=== PATIENT | female | born 1995 | race Two or more races ===

== ENCOUNTER 2018-06-09 09:54 | Outpatient (CLI) | payer OTHER ==
[~2018-06-09] VITALS: Ht 157.5 cm; Wt 85.9 kg
[2018-06-09 10:25] VITALS: Ht 157.5 cm; Wt 85.9 kg
[2018-06-09 10:26] VITALS: BP 132/59; PULSE 91; RESP 18
[2018-06-09] MEDS ORDERED: PNV11TAB PO (10:29)
--- NOTE | 2018-06-09 14:02 | TRIAGE ---
OB Triage Datetime Report Generated by CPN: 06/09/2018 14:02 Datetime: 06/09/2018 11:46 Stage of : OB Triage Datetime: 06/09/2018 11:18 Labor Evaluation Frequency: 0 Monitor Mode: External Pattern: Normal: <= 5 Contractions in 10 Minutes Resting Tone [place]: Relaxed Heart Rate FHR Baseline Rate: 125 Monitor Mode: External US Variability: Moderate 6-25 bpm Accelerations: 10X10 Decelerations: None Category: Category I Pain Assessment Pain Scale: 7 Pain Presence: Constant Pain Type: Ache Pain Location: Right Groin Pain Goal: 3 Pain Relief Measures: Comfort Measures Datetime: 06/09/2018 11:04 Stage of : OB Triage Datetime: 06/09/2018 10:43 Stage of : OB Triage Datetime: 06/09/2018 10:39 Stage of : OB Triage Datetime: 06/09/2018 10:07 Stage of : OB Triage Assessment Type: Triage Maternal Assessment Level of Consciousness: Fully Conscious DTR's/Clonus: DTRs 2+; No Clonus Headache: Denies Blurred Vision: No Respiratory Effort: Unlabored; Regular Rhythm; Equal Expansion Breath Sounds, Left: Clear and Equal Breath Sounds, Right: Clear and Equal Nausea/Vomiting: Denies RUQ Epigastric Pain: Denies Facial Edema: None Temperature Route: Axillary Fall Risk Assessment History of Falling: (0) No Secondary Diagnosis: (0) No Ambulatory Aid: (0) Bedrest/Nurse Assist IV Therapy: (0) No Gait: (0) Normal/Bedrest/Immobile Mental Status: (0) Oriented to Own Ability Fall Score: 0 Fall Risk Score Definition: No Risk: No action required Labor Evaluation Frequency: 0 Monitor Mode: External Pattern: Normal: <= 5 Contractions in 10 Minutes Resting Tone [place]: Relaxed Heart Rate FHR Baseline Rate: 135 Monitor Mode: External US Variability: Moderate 6-25 bpm Accelerations: 10X10 Decelerations: None Category: Category I Pain Assessment Pain Scale: 8 Pain Presence: Intermittent Pain Type: Cramping Pain Location: Right Groin Pain Goal: 3 Pain Relief Measures: Comfort Measures Datetime: 06/09/2018 10:02 Time of Arrival: 06/09/2018 09:50 EGA: 27.3 Arrived By: Ambulatory Arrived From: Home Chief Complaint: RT SIDE LOWER ABDOMEN PAIN SINCE YESTERDAY, NO LEAKING, BLEEDING, OR UC'S Movement: Present Contractions: Denies/Absent Rupture of Membranes: Denies Vaginal Bleeding: None Vaginal Discharge: Denies Recent Sexual Intercouse: Denies Abdominal Trauma: Not Applicable Patient Complaints: Other Time Provider Notified: 06/09/2018 10:40 Provider Notified: VAN Initial Plan: MONITOR ,u/a c_s, maryellen
--- NOTE | 2018-06-09 15:18 | PN ---
Triage Information Date/Time Reason for visit: Right side abdominal pain Weeks of Gestation 27 weeks and 3 days /Para G1 Diabetes: none Hypertention: none Objective Vital Signs Date Temp Pulse Resp B/P (MAP) Pulse Ox O2 O2 Flow FiO2 Time Delivery Rate 06/09/18 98.1 91 18 132/59 10:26 (83) Heart Rate: 140's Contractions: None Results/Medications Results 24 hrs Laboratory Tests Test 06/09/18 10:15 Urine Color YELLOW Urine Clarity CLOUDY A Urine pH 6.0 Urine Specific [place] 1.018 Urine Ketones NEGATIVE Urine Nitrite NEGATIVE Urine Bilirubin NEGATIVE Urine Urobilinogen NEGATIVE Urine Leukocyte Esterase NEGATIVE Urine Microscopic RBC 2 Urine Microscopic WBC 4 Urine Squamous Epithelial Cells MODERATE Urine Mucus FEW A Urine Hemoglobin NEGATIVE Urine Glucose NEGATIVE Urine Total Protein NEGATIVE Disposition: Discharge Assessment/Plan 22 years old 1 with single intrauterine at 27 weeks and 3 days with MICHELLE of 09/05/2018 complaining of right-sided abdominal pain. She states good movement. She denies nausea, vomiting, shortness of breath, chest pain, headache, visual changes, vaginal bleeding or LOF. Her exam is unremarkable except for mild right lower quadrant tenderness, there is no rebound or guarding. heart rate is category 1. She has no uterine contractions. Sign and symptom of labor, preeclampsia, kick count discussed in detail with patient. She expressed understanding. All of her questions answered. She referred to emergency department for further management. Patient and her has agreed to be seen at the emergency department. ITA LOERA Jun 09, 2018 15:18
== END 2018-06-09 12:20 | disposition home or self-care (01) ==
LOC: OBT 09:54 → L-D 09:54 → OBT 12:20
PROVIDERS: ATTEND Obstetrics & Gynecology
DX: O26.892 Other specified pregnancy related conditions, second trimester (principal); Z3A.27 27 weeks gestation of pregnancy; R10.30 Lower abdominal pain, unspecified
CPT/HCPCS: 76815; 81001; 87086; Z7500; G0463

== ENCOUNTER 2018-09-03 07:54 | Inpatient (IN) | payer MEDICAID, OTHER ==
[~2018-09-03] VITALS: Ht 157.5 cm; Wt 90.8 kg
[2018-09-03 08:18] VITALS: Ht 157.5 cm; Wt 90.8 kg
[2018-09-03 08:19] VITALS: BP 128/78; PULSE 112; RESP 18
[2018-09-03] MEDS ORDERED: PNV11TAB PO (08:20)
[2018-09-03] MEDS ORDERED: OXYTOCIN 30 UNITS/LR 500 ML IV SCH ×3 (08:30→16:00)
[2018-09-03] MEDS ORDERED: CARBOPROST 250 MCG INJ IM PRN ×2 (08:30→23:30)
[2018-09-03] MEDS ORDERED: BUTORPHANOL 2 MG INJ IV PRN ×2 (08:30)
[2018-09-03] MEDS ORDERED: METHYLERGONOVINE 0.2 MG INJ IM PRN ×2 (08:30→23:30)
[2018-09-03] MEDS ORDERED: LIDOCAINE 1% (MPF) 30 ML INJ INJ PRN (08:30)
[2018-09-03] MEDS ORDERED: OXYTOCIN 30 UNITS/LR 500 ML IV PRN ×2 (08:30→23:30)
[2018-09-03] MEDS ORDERED: MISOPROSTOL 200 MCG TAB PR PRN ×2 (08:30→23:30)
[2018-09-03] MEDS: LACTATED RINGER'S 1,000 ML IV SCH ×2 (09:18→15:11)
--- NOTE | 2018-09-03 14:57 | PREAC ---
Date/Time of Note Date/Time of Note DATE: 09/03/18 TIME: 14:56 Anesthesia Eval and Record Evaluation Time Pre-Procedure Interview DATE: 09/03/18 TIME: 14:56 Age 23 Sex female NPO: 8 hrs Preoperative diagnosis Labor pain Planned procedure epidural Past Medical History Past Medical History: None Surgery & Anesthesia Issues No known issue Meds Anticoagulation: No Beta Milla within 24 hr: No Reason Beta Milla not given: Pt. not on B-Milla Reported Medications [id number] ( 19) 1 Each Tablet, 1 TAB PO DAILY, TAB 09/03/18 Current Medications Lactated Ringer's 1,000 ml @ 125 mls/hr Q8H IV Last administered on 09/03/18at 09:18; Admin Dose 125 MLS/HR; Start 09/03/18 at 08:21 Butorphanol Tartrate (Stadol) 1 mg Q2H PRN IV .PAIN SCALE 1-5; Start 09/03/18 at 08:30 Butorphanol Tartrate (Stadol) 2 mg Q2H PRN IV .PAIN SCALE 6-10; Start 09/03/18 at 08:30 Lidocaine (Xylocaine 1% (Mpf)) 30 ml ONCE PRN INJ .EPISIOTOMY; Start 09/03/18 at 08:30 Oxytocin/Lactated Ringer's 500 ml @ 500 mls/hr ONCE POST IV ; Start 09/03/18 at 08:30 Oxytocin/Lactated Ringer's 500 ml @ 125 mls/hr POST IV ; Start 09/03/18 at 08:30 Oxytocin/Lactated Ringer's 500 ml @ 0 mls/hr ONCE PRN IV .VAGINAL BLEEDING; S tart 09/03/18 at 08:30 Methylergonovine Maleate (Methergine) 0.2 mg ONCE PRN IM .VAGINAL BLEEDING; S tart 09/03/18 at 08:30 Carboprost Tromethamine (Hemabate) 250 mcg ONCE PRN IM .VAGINAL BLEEDING; Start 09/03/18 at 08:30 Misoprostol (Cytotec) 1,000 mcg ONCE PRN MT .VAGINAL BLEEDING; Start 09/03/18 at 08:30 Meds reviewed: Yes Allergies Coded Allergies: No Known Allergy (Unverified , 06/09/18) Allergies Reviewed: Yes Labs/Studies Labs Reviewed: Reviewed by anesthesiologist Result Diagram: 09/03/18 0925 Laboratory Tests 09/03/18 09:25 Blood Bank Test 09/03/18 09:25 Antibody Screen NEGATIVE Blood Type O POSITIVE Rh Immune Globulin Candidate NO test: Positive Studies: ECG, CXR Pre-procedure Exam Last vitals Vital Signs Date Temp Pulse Resp B/P (MAP) Pulse Ox O2 O2 Flow FiO2 Time Delivery Rate 09/03/18 98.0 112 18 128/78 08:19 (95) Airway: Adequate mouth opening Mallampati: Mallampati I Teeth: Normal Lung: Normal Heart: Normal ASA Physical Status ASA physical status: 2 Emergency: None Planned Pain Management Epidural Pre-operative Attestations Prior to commencing anesthesia and surgery, the patient was re-evaluated, there was verification of: *The patient's identity *The results of appropriate recent lab work and preoperative vital signs *The above evaluation not changing prior to induction *Anesthetic plan, risk benefits, alternative and complications discussed with patient/family; questions answered; patient/family understands, accepts and wishes to proceed. JENNIE STODDARD MD September 03, 2018 14:57
[2018-09-03] MEDS ORDERED: FENTAnyl 2MCG/ML-ROPIV 0.2% 100 ML ONE (15:09)
[2018-09-03] MEDS ORDERED: DIPHENHYDRAMINE 50 MG INJ IV PRN (17:30)
[2018-09-03] MEDS ORDERED: FENTAnyl 2MCG/ML-ROPIV 0.2% 100 ML BAG EPI SCH (17:30)
[2018-09-03] MEDS ORDERED: ONDANSETRON 4 MG INJ IV PRN (17:30)
[2018-09-03] MEDS ORDERED: NALOXONE (0.4 MG/ML) INJ IV PRN (17:30)
[2018-09-03] MEDS ORDERED: MINERAL OIL LIGHT 10 ML VIAL TOP ONE ×2 (20:00→23:30)
--- NOTE | 2018-09-03 21:07 | HP ---
Date/Time of Note Date/Time of Note DATE: 09/03/18 TIME: 21:03 OB - History Hx of Present Free Text/Dictation 23-year-old female 1 para 0 at 39 weeks and 5 days gestation admitted complaining of onset of labor contractions 2300 p.m. on September 02, 2018 Last Menstrual Period: Nov 29, 2017 Estimated Due Date: September 05, 2018 : 1 Para: 0 Care: Good Care Ultrasounds: Normal mid trimester US Obstetrical Complications: None Medical Complications: None Past Family/Social History * Past Medical, Surgical, Family and Obstetric Histories reviewed from chart. Blood Type: O+ Rubella: not immune RPR/VDRL: Negative GBS Status: Negative HBsAG: Negative OB Admission Exam Vital Signs Vital Signs Vital Signs Date Temp Pulse Resp B/P (MAP) Pulse Ox O2 O2 Flow FiO2 Time Delivery Rate 09/03/18 98.0 112 18 128/78 08:19 (95) Physical Exam HEENT: WNL Heart: Rhythm Normal Lungs: Clear, Equal Abdomen: WNL Extremities: Normal Reflexes: Normal Cervical Dilatation: 3cm Effacement: 75% Station: -3 Membranes: Intact Heart Rate: 140's Accelerations: Accelerations Present Decelerations: No Decelerations Varibility: Marked Contractions on Admission: 6-10 Minutes Apart Date/Time Contractions Began: September 02, 2018 at 2300 p.m. Frequency of Contractions: Every 8 minutes Duration: Over 60 seconds Intensity: Mild Last 72 hours Lab Results CBC & BMP 09/03/18 09:25 OB Assessment/Plan Other Assessment: Term gestation Labor contractions Other plan: Proceed with labor KYM WRIGHT MD September 03, 2018 21:07
--- NOTE | 2018-09-03 21:09 | LDN ---
Date/Time of Note Date/Time of Note DATE: 09/03/18 TIME: 21:07 Delivery Summary Normal spontaneous vaginal delivery of a viable over midline episiotomy Weeks of Gestation 39 weeks and 5 days Placenta Delivered: Spontaneously Meconium: none Episiotomy: Yes Indication for episiotomy Prolonged bradycardic episodes and variable decelerations of heart tones Laceration repair: Midline episiotomy was repaired in layers using 2-0 Vicryl in deeper layers and 2 chromic and superficial Anesthesia type: Epidural Estimated blood loss: 200 Sponge & Needle done & correct: Yes All needle counts correct: Yes Any foreign bodies felt in the: No Infant Delivery Information Sex Sex: male Apgars 1 Minute: 9 5 Minute: 9 Suctioning Nose & mouth suctioned at pj: Yes Delee suction performed: No Umbilical Cord Umbilical cord with: 3 Vessels Cord presentations: no nuchal cord Cord Blood was obtained: Yes Mother & Baby Disposition Disposition Mom & Baby to Maternity; Good: Yes (Mother and baby were recovered in good condition) Mom transferred to: Other Baby to NICU: No KYM WRIGHT MD September 03, 2018 21:08
[2018-09-03] MEDS ORDERED: ACETAMINOPHEN 500 MG TAB PO ONE (21:14)
[2018-09-03] MEDS ORDERED: KETOROLAC 30 MG INJ IV ONE (21:14)
[2018-09-03 21:55] VITALS: BP 125/72; PULSE 85; RESP 18
[2018-09-03] MEDS ORDERED: WITCH HAZEL/GLYCERIN PAD PR PRN (23:30)
[2018-09-03] MEDS ORDERED: LANOLIN HPA 1 PKT TOP PRN (23:30)
[2018-09-03] MEDS ORDERED: DIBUCAINE 1% 30 GM OINT TOP PRN (23:30)
[2018-09-03] MEDS ORDERED: HYDROCODONE/APAP (5/325) TAB PO PRN ×2 (23:30)
[2018-09-03] MEDS ORDERED: BENZOCAINE 20% 56 ML SPRAY TOP PRN (23:30)
[2018-09-03] MEDS ORDERED: ZOLPIDEM 5 MG TAB PO PRN (23:30)
[2018-09-04] MEDS: IBUPROFEN 600 MG TAB PO SCH ×5 (00:25→23:47)
[2018-09-04] MEDS: CEPHALEXIN 500 MG CAP PO SCH ×5 (00:25→23:47)
[2018-09-04] MEDS: LACTATED RINGER'S 1,000 ML IV* SCH ×2 (01:49→06:58)
[2018-09-04 03:50] VITALS: BP 114/49; PULSE 86; RESP 17
[2018-09-04 08:30] VITALS: BP 118/69; PULSE 81; RESP 18
[2018-09-04] MEDS: MAGNESIUM HYDROXIDE 30ML CUP PO SCH ×2 (09:25→21:26)
[2018-09-04] MEDS: SENNA/DOCUSATE NA (8.6MG/50MG) TAB PO SCH ×2 (09:25→21:26)
--- NOTE | 2018-09-04 11:55 | DS ---
Date/Time of Note Date/Time of Note Home today or next day DATE: 09/04/18 TIME: 11:54 Obstetrical Discharge Record Final Diagnosis Final Diagnosis: Term delivered Other Final Diagnosis Status post vaginal delivery Vaginal Delivery Obstetrical Delivery: Spontaneous, Episiotomy, Repaired Complications Augmentation: Yes Condition on Discharge Physical Assessment Last Vitals: See nurse's notes Voiding: Yes Bowel Movement: Yes Breast: Soft, non-tender, Filling Fundus: Firm Abdomen and Incision: Abdomen is soft with present bowel sounds And this is firm below bellybutton Episiotomy: Episiotomy is healing well and appears clean Calf Tenderness: No Patient Condition: Good KYM WRIGHT MD September 04, 2018 11:55
[2018-09-04] MEDS ORDERED: IBUP-1542 PO (11:57)
--- NOTE | 2018-09-04 11:57 | PD.PPDC ---
[facility] Discharge Instruction Provider Information Physician Information 23-year-old female had vaginal delivery Diagnosis [id number] Final Diagnosis: Vbtoa3o Status post vaginal delivery Condition [id number] Patient Condition: [id number] Good Diet [id number] Diet: Pnwtw3r Resume Regular Diet Activity/Restrictions [id number] Activity: Plqlc8j Normal Activity May Shower [id number] Restrictions: Cclkq7a Nothing in the Vagina [id number] Return to Work or School: [id number] Oct 18, 2018 Follow-up Follow-up with Physician: 2, 4, Week/Weeks Return to clinic for [id number] OB Instructions: Yvxqs1a Breast Tenderness (In clinic) Depression Comment: Pelvic rest for 6 weeks KYM WRIGHT MD September 04, 2018 11:57
[2018-09-04 12:00] VITALS: BP 107/68; PULSE 102; RESP 18
[2018-09-04 15:50] VITALS: BP 103/60; PULSE 99; RESP 18
[2018-09-04 20:30] VITALS: BP 120/64; PULSE 91; RESP 17
[2018-09-05 04:00] VITALS: BP 118/62; PULSE 96; RESP 18
[2018-09-05] MEDS: CEPHALEXIN 500 MG CAP PO SCH ×2 (05:43→12:33)
[2018-09-05] MEDS: IBUPROFEN 600 MG TAB PO SCH ×2 (05:43→12:33)
[2018-09-05] MEDS ORDERED: VARICELLA VACCINE LIVE/PF 1,350 UNIT/0.5 ML ML SC* ONE (09:00)
[2018-09-05] MEDS ORDERED: MEASLES,MUMPS,RUBELLA VACCINE INJ SC* ONE (09:00)
[2018-09-05] MEDS ORDERED: DIPHTH/TET/ACEL PERTUSS (ADULT) 0.5 ML VIAL IM* ONE (09:00)
[2018-09-05 09:15] VITALS: BP 113/55; PULSE 53; RESP 18
[2018-09-05] MEDS: SENNA/DOCUSATE NA (8.6MG/50MG) TAB PO SCH (10:23)
[2018-09-05] MEDS: MAGNESIUM HYDROXIDE 30ML CUP PO SCH (10:23)
--- NOTE | 2018-09-06 06:37 | PAC ---
Date/Time of Note Date/Time of Note DATE: 09/05/18 TIME: 06:36 Post-Anesthesia Notes Post-Anesthesia Note Last documented vital signs Vital Signs Date Temp Pulse Resp B/P (MAP) Pulse Ox O2 O2 Flow FiO2 Time Delivery Rate 09/05/18 98.5 53 18 113/55 99 Room Air 09:15 (74) Activity: WNL Respiratory function: WNL Cardiovascular function: WNL Mental status: Baseline Pain reasonably controlled: Yes Hydration appropriate: Yes Nausea/Vomiting absent: No JENNIE STODDARD MD September 06, 2018 06:37
--- NOTE | 2018-09-06 16:33 | DELSUM ---
Delivery Summary A-C Datetime Report Generated by CPN: 09/06/2018 16:33 DELIVERY PERSONNEL Fence Builder: Tersigni, Kindra MATERNAL INFORMATION Delivery Anesthesia: Epidural Medications in Delivery: LR with 30 units of pitocin Delivery QBL (ml): 250 Placenta Cultured: No Maternal Complications: None LABOR SUMMARY EDC: 09/05/2018 00:00 No. Babies in Womb: 1 Attempted: No Labor Anesthesia: Epidural LABOR INFORMATION Reason for Induction: Not Applicable Onset of Labor: 09/03/2018 04:00 Complete Dilatation: 09/03/2018 19:51 Oxytocin: Augmentation Group B Beta Strep: Negative Antibiotics # of Doses: 0 Steroids Given: None Reason Steroids Not Administered: Not Applicable MEMBRANES Membranes Rupture Method: Artificial Rupture of Membranes: 09/03/2018 14:51 Length of Rupture (hr): 5.93 Amniotic Fluid Color: Clear Amniotic Fluid Amount: Small Amniotic Fluid Odor: Normal STAGES OF LABOR Stage 1 hr: 15 Stage 1 min: 51 Stage 2 hr: 0 Stage 2 min: 56 Stage 3 hr: 0 Stage 3 min: 3 Total Time in Labor hr: 16 Total Time in Labor min: 50 VAGINAL DELIVERY Episiotomy: Median Laceration Extension: N/A Laceration Type: None Laceration Repair: Yes Initial Vag Sponge Count: 10 Final Vag Sponge Count: 10 Initial Vag Sharps Count: 1+2 Final Vag Sharps Count: 3 Sponge Count Correct: Yes; Vaginal Sweep Performed Sharps Count Correct: Yes BABY A INFORMATION Delivery Date/Time: 09/03/2018 20:47 Method of Delivery: Vaginal Born in Route : No : N/A Forceps: N/A Vacuum Extraction: N/A Shoulder Dystocia : N/A SHOULDER DYSTOCIA BABY A Infant Delivery Date/Time: 09/03/2018 20:47 PRESENTATION/POSITION BABY A Presentation: Cephalic Cephalic Presentation: Vertex Vertex Position: Left Occipital Anterior Breech Presentation: N/A PLACENTA INFORMATION BABY A Placenta Delivery Time : 09/03/2018 20:50 Placenta Method of Delivery: Spontaneous Placenta Status: Delivered SCORES BABY A Heart Rate 1 min: >100 bpm Resp Effort 1 min: Good Cry Reflex Irritability 1 min: Cough/Sneeze/Pulls Away Muscle Tone 1 min: Active Motion Color 1 min: Blue/Pale Resuscitation Effort 1 min: Tactile Stimulation SCORE 1 MIN: 8 Heart Rate 5 min: >100 bpm Resp Effort 5 min: Good Cry Reflex Irritability 5 min: Cough/Sneeze/Pulls Away Muscle Tone 5 min: Active Motion Color 5 min: Body [place], Extremit Blue Resuscitation Effort 5 min: Tactile Stimulation SCORE 5 MIN: 9 INFANT INFORMATION BABY A Gestational Age at Delivery: 39.5 Gestational Status: Full Term- 39- 40.6 Weeks Outcome : Liveborn Infant Condition : Stable Sex: Male IDENTIFICATION/MEDS BABY A ID Band Number: [id number] ID Band Location: Right Leg; Left Arm Sensor Applied: Yes Sensor Number: [id number] Sensor Location : Cord Clamp Vitamin K Given : Not Given Erythromycin Given: Not Given WEIGHT/LENGTH BABY A Infant Birthweight (gm): 3830 Weight (lb): 8 Infant Weight (oz): 7 Length (in): 20.25 Infant Length (cm): 51.44 CORD INFORMATION BABY A No. Cord Vessels: 3 Nuchal Cord : N/A Cord Blood Taken: Yes Infant Suction: Mouth; Nose ASSESSMENT BABY A Complications: Extended Bradycardi Physical Findings at Delivery: Molding of the Head; Within Normal Limits Infant Respirations: Appears Normal Store Receiver/ALS Called : Yes Infant Care By: NICU Team / Rigo HAMMOND Transferred To: Remains with Mother
== END 2018-09-05 15:00 | disposition home or self-care (01) | DRG 807 ==
LOC: OBT 07:54 → L-D 07:55 → OBT 08:25 → L-D 08:34 → PP1 22:45
PROVIDERS: ADMIT Obstetrics & Gynecology; ATTEND Obstetrics & Gynecology
PROC: 10E0XZZ Delivery of Products of Conception, External Approach (ICD-10-PCS; principal; 2018-09-03)
PROC: 0W8NXZZ Division of Female Perineum, External Approach (ICD-10-PCS; 2018-09-03)
DX: O99.89 Other specified diseases and conditions complicating pregnancy, childbirth and the puerperium (principal); R00.1 Bradycardia, unspecified; Z37.0 Single live birth; Z3A.39 39 weeks gestation of pregnancy
CPT/HCPCS: 62322; 76815; 80307; 85025; 85610; 85730; 86592; 86850; 86900; 86901; 87340; 90716; 99464; G0463; J1885; J2590; J3010; J7120